=== PATIENT | male | born 1945 | race Caucasian/White ===

== ENCOUNTER → 2017-01-09 | Outpatient (CLI) | payer MEDICARE, BC | LOC: LAB 07:08 | DX: Q02 Microcephaly (principal); G62.89 Other specified polyneuropathies ==

== ENCOUNTER → 2017-01-13 | Outpatient (CLI) | payer MEDICARE, BC | LOC: RAD 15:08 | DX: G95.19 Other vascular myelopathies (principal); M51.36 Other intervertebral disc degeneration, lumbar region; M48.06 Spinal stenosis, lumbar region; M51.26 Other intervertebral disc displacement, lumbar region ==

== ENCOUNTER → 2017-01-23 | Outpatient (CLI) | payer MEDICARE, BC | LOC: RAD 09:56 | DX: M79.604 Pain in right leg (principal) ==

== ENCOUNTER → 2017-01-27 | Outpatient (CLI) | payer MEDICARE, BC | LOC: RAD 12:51 | DX: M79.89 Other specified soft tissue disorders (principal); R60.0 Localized edema; M71.22 Synovial cyst of popliteal space [Baker], left knee ==

== ENCOUNTER → 2017-06-02 | Outpatient (CLI) | payer MEDICARE, BC ==
[~2017-06-02] VITALS: Ht 188 cm; Wt 86.4 kg
[~2017-06-02] MED LIST: ASPIR LOW81 MG PO; COZAAR 50MG50 MG/TAB PO; DAILY VITAMIN1 EAC1 PO; LASIX20 M1 PO
[2017-06-02 17:20] VITALS: BP 148/84
== END ==
LOC: AMSURD 10:49 → LAB 10:49
DX: M79.89 Other specified soft tissue disorders (principal); I97.131 Postprocedural heart failure following other surgery

== ENCOUNTER → 2017-06-09 | Outpatient (CLI) | payer MEDICARE, BC ==
[2017-06-02 17:20] VITALS: BP 148/84
== END ==
LOC: LAB 10:53
DX: I50.9 Heart failure, unspecified (principal)

== ENCOUNTER → 2017-07-02 | Outpatient (CLI) | payer MEDICARE, BC ==
[2017-06-02 17:20] VITALS: BP 148/84
== END ==
LOC: RAD 09:30
DX: R06.00 Dyspnea, unspecified (principal); M17.12 Unilateral primary osteoarthritis, left knee; M25.462 Effusion, left knee

== ENCOUNTER 2017-07-09 10:00 | Outpatient (RCR) | payer MEDICARE, BC ==
[2017-06-02 17:20] VITALS: BP 148/84
== END 2017-07-09 10:30 | disposition still patient (30) ==
LOC: PT 10:00
DX: G62.9 Polyneuropathy, unspecified (principal)
CPT/HCPCS: G8978-GP; G8979-GP

== ENCOUNTER → 2017-09-15 | Outpatient (CLI) | payer MEDICARE, BC ==
[2017-06-02 17:20] VITALS: BP 148/84
== END ==
LOC: LAB 11:06
DX: R19.5 Other fecal abnormalities (principal)

== ENCOUNTER → 2017-09-19 | Outpatient (CLI) | payer MEDICARE, BC ==
[2017-06-02 17:20] VITALS: BP 148/84
== END ==
LOC: LAB 11:13
DX: R19.5 Other fecal abnormalities (principal)

== ENCOUNTER → 2017-09-22 | Outpatient (CLI) | payer MEDICARE, BC ==
[~2017-09-22] VITALS: Ht 188 cm; Wt 84.5 kg
[2017-09-22 13:18] VITALS: BP 148/80
[2017-09-22 13:25] LABS: EOS # 0.1 (0.04-0.40); EOS % 1.3 % (0.0-4.0); HEMATOCRIT 37.9 % (42.0-52.0); HEMOGLOBIN 11.9 g/dL (13.5-18.0); LYMPH# 2.2 (1.50-4.00); MEAN CELL VOLUME 86 fl (78-100); MEAN CORPUSCULAR HEMOGLOBIN 27 pg (27-31); MEAN CORPUSCULAR HGB CONC 31 g/dL (33-37); MEAN PLATELET VOLUME 9.5 fl (7.4-10.4); NEU # 5.4 (1.40-6.50); PLATELET COUNT 500 K/mm3 (130-400); RED CELL DISTRIBUTION WIDTH 14.6 % (11.5-14.5); WHITE BLOOD COUNT 8.7 K/mm3 (4.8-10.8)
[2017-09-22 13:29] LABS: PROTHROMBIN TIME 10.5 SECONDS (9.0-12.0)
[2017-09-22 13:31] LABS: ALBUMIN 3.7 g/dL (3.5-5.0); ALT/SGPT 32 U/L (21-72); AST-SGOT 19 U/L (17-59); CALCIUM 9.1 mg/dL (8.4-10.2); CARBON DIOXIDE 24 mmol/L (22-30); GLUCOSE 91 mg/dL (75-110); POTASSIUM 4.4 mmol/L (3.6-5.0); SODIUM 139 mmol/L (137-145); TOTAL BILIRUBIN 0.4 mg/dL (0.2-1.3); TOTAL PROTEIN 7.1 g/dL (6.3-8.2)
[2017-09-22 18:44] LABS: URINE APPEARANCE CLEAR; URINE BILIRUBIN NEGATIVE (NEGATIVE); URINE BLOOD NEGATIVE (NEGATIVE); URINE COLOR YELLOW; URINE GLUCOSE NEGATIVE (NEGATIVE); URINE KETONE NEGATIVE (NEGATIVE); URINE LEUKOCYTE ESTERASE NEGATIVE (NEGATIVE); URINE NITRATE NEGATIVE (NEGATIVE); URINE PROTEIN(semi-quant) NEGATIVE (NEGATIVE); URINE UROBILINOGEN NORMAL (NORMAL); URINE WBC 0-1 /hpf (0-3)
== END ==
LOC: AMSURD 12:35
PROVIDERS: Internal Medicine
DX: Z01.818 Encounter for other preprocedural examination (principal); M15.9 Polyosteoarthritis, unspecified

== ENCOUNTER → 2017-11-04 | Outpatient (CLI) | payer MEDICARE, BC ==
[2017-09-22 13:18] VITALS: BP 148/80
[2017-11-04 07:32] LABS: PH-URINE 6.5 (5.0 - 8.0); URINE APPEARANCE CLEAR; URINE BILIRUBIN NEGATIVE (NEGATIVE); URINE BLOOD NEGATIVE (NEGATIVE); URINE COLOR YELLOW; URINE GLUCOSE NEGATIVE (NEGATIVE); URINE KETONE NEGATIVE (NEGATIVE); URINE LEUKOCYTE ESTERASE NEGATIVE (NEGATIVE); URINE MUCUS PRESENT (NOT PRESENT); URINE NITRATE NEGATIVE (NEGATIVE); URINE PROTEIN(semi-quant) NEGATIVE (NEGATIVE); URINE UROBILINOGEN NORMAL (NORMAL); URINE WBC 0-1 /hpf (0-3)
== END ==
LOC: LAB 07:12
PROVIDERS: Internal Medicine
DX: Z12.5 Encounter for screening for malignant neoplasm of prostate (principal); Z12.11 Encounter for screening for malignant neoplasm of colon; Z01.818 Encounter for other preprocedural examination; E78.2 Mixed hyperlipidemia; M15.9 Polyosteoarthritis, unspecified

== ENCOUNTER 2017-11-24 13:00 | Outpatient (RCR) | payer MEDICARE, BC ==
[2017-09-22 13:18] VITALS: BP 148/80
== END 2017-11-24 13:30 | disposition home or self-care (01) ==
LOC: PT 13:00
DX: Z47.1 Aftercare following joint replacement surgery (principal); Z96.651 Presence of right artificial knee joint
CPT/HCPCS: G8978-GP; G8979-GP

== ENCOUNTER → 2018-01-14 | Outpatient (CLI) | payer MEDICARE, BC ==
[2017-09-22 13:18] VITALS: BP 148/80
[2018-01-14 14:39] LABS: POTASSIUM 3.9 mmol/L (3.6-5.0)
== END ==
LOC: LAB 14:13
PROVIDERS: Nurse Practitioner Family
DX: R60.9 Edema, unspecified (principal)

== ENCOUNTER → 2018-01-26 | Outpatient (CLI) | payer MEDICARE, BC ==
[~2018-01-26] VITALS: Ht 188 cm; Wt 84.5 kg
[2018-01-26 11:18] LABS: PROTHROMBIN TIME 10.6 SECONDS (9.0-12.0)
[2018-01-26 11:21] LABS: ALBUMIN 3.7 g/dL (3.5-5.0); BUN/CREATININE RATIO 26.8 (6.0-26.0); CALCIUM 8.9 mg/dL (8.4-10.2); POTASSIUM 3.9 mmol/L (3.6-5.0); TOTAL BILIRUBIN 0.2 mg/dL (0.2-1.3); TOTAL PROTEIN 7.9 g/dL (6.3-8.2)
[2018-01-26 11:25] LABS: HEMOGLOBIN 11.3 g/dL (13.5-18.0); MEAN CELL VOLUME 80 fl (78-100); MEAN CORPUSCULAR HEMOGLOBIN 25 pg (27-31); MEAN CORPUSCULAR HGB CONC 31 g/dL (33-37); MEAN PLATELET VOLUME 9.1 fl (7.4-10.4); PLATELET COUNT 473 K/mm3 (130-400); RED BLOOD COUNT 4.52 M/mm3 (4.20-5.60); RED CELL DISTRIBUTION WIDTH 17.3 % (11.5-14.5); WHITE BLOOD COUNT 8.4 K/mm3 (4.8-10.8)
[2018-01-26 11:34] LABS: LYMPHOCYTE 32 % (20-51); MONOCYTE 16 % (3-10); NEUTROPHILS 50 % (42-75)
[2018-01-26 11:46] VITALS: BP 128/70
[2018-01-26 13:03] LABS: URINE APPEARANCE CLEAR; URINE BILIRUBIN NEGATIVE (NEGATIVE); URINE BLOOD NEGATIVE (NEGATIVE); URINE COLOR YELLOW; URINE GLUCOSE NEGATIVE (NEGATIVE); URINE KETONE NEGATIVE (NEGATIVE); URINE LEUKOCYTE ESTERASE NEGATIVE (NEGATIVE); URINE MUCUS PRESENT (NOT PRESENT); URINE NITRATE NEGATIVE (NEGATIVE); URINE PROTEIN(semi-quant) NEGATIVE (NEGATIVE); URINE UROBILINOGEN NORMAL (NORMAL); URINE WBC 0-1 /hpf (0-3)
== END ==
LOC: AMSURD 10:42
PROVIDERS: Internal Medicine
DX: Z01.812 Encounter for preprocedural laboratory examination (principal); M15.9 Polyosteoarthritis, unspecified; Z51.81 Encounter for therapeutic drug level monitoring; R53.83 Other fatigue

== ENCOUNTER 2018-04-01 13:00 | Outpatient (RCR) | payer MEDICARE, BC ==
[2018-01-26 11:46] VITALS: BP 128/70
== END 2018-04-01 13:30 | disposition home or self-care (01) ==
LOC: PT 13:00
DX: Z47.1 Aftercare following joint replacement surgery (principal); Z96.652 Presence of left artificial knee joint; Z96.651 Presence of right artificial knee joint; I10 Essential (primary) hypertension; Z79.899 Other long term (current) drug therapy
CPT/HCPCS: G8978-GP; G8979-GP

== ENCOUNTER → 2018-10-26 | Outpatient (CLI) | payer MEDICARE, BC ==
[2018-01-26 11:46] VITALS: BP 128/70
[2018-10-26 07:50] LABS: EOS # 0.2 (0.04-0.40); EOS % 2.8 % (0.0-4.0); HEMATOCRIT 47.8 % (42.0-52.0); HEMOGLOBIN 15.3 g/dL (13.5-18.0); LYMPH# 2.5 (1.50-4.00); MEAN CELL VOLUME 86 fl (78-100); MEAN CORPUSCULAR HEMOGLOBIN 28 pg (27-31); MEAN CORPUSCULAR HGB CONC 32 g/dL (33-37); MEAN PLATELET VOLUME 9.6 fl (7.4-10.4); MONO # 0.8 (0.20-0.80); NEU # 4.6 (1.40-6.50); PLATELET COUNT 350 K/mm3 (130-400); RED BLOOD COUNT 5.57 M/mm3 (4.20-5.60); WHITE BLOOD COUNT 8.2 K/mm3 (4.8-10.8)
[2018-10-26 08:10] LABS: ALBUMIN 4.4 g/dL (3.5-5.0); CALCIUM 9.6 mg/dL (8.4-10.2); POTASSIUM 3.9 mmol/L (3.6-5.0); TOTAL BILIRUBIN 0.5 mg/dL (0.2-1.3); TOTAL PROTEIN 8.1 g/dL (6.3-8.2)
[2018-10-26 08:43] LABS: URINE APPEARANCE CLEAR; URINE COLOR YELLOW
[2018-10-26 08:44] LABS: URINE BILIRUBIN NEGATIVE (NEGATIVE); URINE BLOOD NEGATIVE (NEGATIVE); URINE GLUCOSE NEGATIVE (NEGATIVE); URINE KETONE NEGATIVE (NEGATIVE); URINE LEUKOCYTE ESTERASE NEGATIVE (NEGATIVE); URINE MUCUS PRESENT (NOT PRESENT); URINE NITRATE NEGATIVE (NEGATIVE); URINE PROTEIN(semi-quant) TRACE mg/dL (NEGATIVE); URINE UROBILINOGEN NORMAL (NORMAL)
== END ==
LOC: LAB 07:06
PROVIDERS: Internal Medicine
DX: Z01.812 Encounter for preprocedural laboratory examination (principal); Z12.5 Encounter for screening for malignant neoplasm of prostate; Z12.11 Encounter for screening for malignant neoplasm of colon; M15.9 Polyosteoarthritis, unspecified; E78.2 Mixed hyperlipidemia

== ENCOUNTER → 2018-11-02 | Outpatient (CLI) | payer MEDICARE, BC ==
[2018-01-26 11:46] VITALS: BP 128/70
== END ==
LOC: RAD 09:48
DX: R09.89 Other specified symptoms and signs involving the circulatory and respiratory systems (principal)

== ENCOUNTER → 2019-11-19 | Outpatient (CLI) | payer MEDICARE, BC ==
[2018-01-26 11:46] VITALS: BP 128/70
[2019-11-19 08:52] LABS: EOS # 0.2 (0.04-0.40); HEMATOCRIT 46.3 % (42.0-52.0); HEMOGLOBIN 14.9 g/dL (13.5-18.0); LYMPH# 2.7 (1.50-4.00); MEAN CELL VOLUME 93 fl (78-100); MEAN CORPUSCULAR HEMOGLOBIN 30 pg (27-31); MEAN CORPUSCULAR HGB CONC 32 g/dL (33-37); MEAN PLATELET VOLUME 10.2 fl (7.4-10.4); NEU # 4.5 (1.40-6.50); PLATELET COUNT 366 K/mm3 (130-400); RED BLOOD COUNT 4.98 M/mm3 (4.20-5.60); RED CELL DISTRIBUTION WIDTH 14.3 % (11.5-14.5); WHITE BLOOD COUNT 8.4 K/mm3 (4.8-10.8)
[2019-11-19 08:53] LABS: ALBUMIN 4.1 g/dL (3.4-4.8); POTASSIUM 4.2 mmol/L (3.5-5.1)
[2019-11-19 08:54] LABS: CALCIUM 9.9 mg/dL (8.3-10.5)
[2019-11-19 08:56] LABS: TOTAL PROTEIN 7.1 g/dL (6.2-8.1)
[2019-11-19 08:57] LABS: TOTAL BILIRUBIN 0.5 mg/dL (0.2-1.2)
[2019-11-19 09:02] LABS: MAGNESIUM 1.83 mg/dL (1.60-2.60)
== END ==
LOC: LAB 11-18 10:05
PROVIDERS: Internal Medicine
DX: Z12.5 Encounter for screening for malignant neoplasm of prostate (principal); Z12.11 Encounter for screening for malignant neoplasm of colon; I10 Essential (primary) hypertension; E78.2 Mixed hyperlipidemia

== ENCOUNTER → 2020-05-18 | Outpatient (CLI) | payer MEDICARE, BC ==
[2018-01-26 11:46] VITALS: BP 128/70
== END ==
LOC: VAS 15:34 → RAD 15:45 → VAS 15:45
DX: I48.19 Other persistent atrial fibrillation (principal)

== ENCOUNTER → 2020-12-27 | Outpatient (CLI) | payer MEDICARE, BC ==
[2018-01-26 11:46] VITALS: BP 128/70
[2020-12-27 08:31] LABS: URINE APPEARANCE CLEAR; URINE BILIRUBIN NEGATIVE (NEGATIVE); URINE BLOOD NEGATIVE (NEGATIVE); URINE COLOR YELLOW; URINE GLUCOSE NEGATIVE (NEGATIVE); URINE KETONE NEGATIVE (NEGATIVE); URINE LEUKOCYTE ESTERASE NEGATIVE (NEGATIVE); URINE NITRATE NEGATIVE (NEGATIVE); URINE PROTEIN(semi-quant) NEGATIVE (NEGATIVE); URINE UROBILINOGEN NORMAL (NORMAL); URINE WBC 0-1 /hpf (0-3)
[2020-12-27 08:59] LABS: POTASSIUM 4.4 mmol/L (3.5-5.1)
[2020-12-27 09:00] LABS: ALBUMIN 4.2 g/dL (3.4-4.8)
[2020-12-27 09:01] LABS: CALCIUM 9.4 mg/dL (8.3-10.5)
[2020-12-27 09:04] LABS: TOTAL BILIRUBIN 0.7 mg/dL (0.2-1.2)
[2020-12-27 09:09] LABS: MAGNESIUM 2.04 mg/dL (1.60-2.60)
[2020-12-27 09:58] LABS: EOS # 0.2 (0.04-0.40); EOS % 3.4 % (0.0-4.0); HEMATOCRIT 49.4 % (42.0-52.0); HEMOGLOBIN 16.1 g/dL (13.5-18.0); LYMPH# 1.8 (1.50-4.00); MEAN CELL VOLUME 95 fl (78-100); MEAN CORPUSCULAR HEMOGLOBIN 31 pg (27-31); MEAN CORPUSCULAR HGB CONC 33 g/dL (33-37); MEAN PLATELET VOLUME 10.5 fl (7.4-10.4); MONO # 0.7 (0.20-0.80); NEU # 2.9 (1.40-6.50); PLATELET COUNT 277 K/mm3 (130-400); RED BLOOD COUNT 5.21 M/mm3 (4.20-5.60); RED CELL DISTRIBUTION WIDTH 13.6 % (11.5-14.5); WHITE BLOOD COUNT 5.6 K/mm3 (4.8-10.8)
[2020-12-27 11:22] LABS: ERYTHROCYTE SEDIMENTATION RATE 5 mm/hr (0-20)
== END ==
LOC: LAB 07:46
PROVIDERS: Internal Medicine
DX: Z12.5 Encounter for screening for malignant neoplasm of prostate (principal); I10 Essential (primary) hypertension; E78.2 Mixed hyperlipidemia; K90.9 Intestinal malabsorption, unspecified

== ENCOUNTER → 2021-01-01 | Outpatient (CLI) | payer MEDICARE, BC ==
[2018-01-26 11:46] VITALS: BP 128/70
== END ==
LOC: LAB 08:09
DX: Z12.11 Encounter for screening for malignant neoplasm of colon (principal)

== ENCOUNTER → 2021-11-22 | Outpatient (CLI) | payer MEDICARE, BC ==
[2021-11-22 08:02] LABS: BASO # 0.03 K/mm3 (0.02-0.10); HEMATOCRIT 47.8 % (42.0-52.0); HEMOGLOBIN 16.2 g/dL (13.5-18.0); LYMPH# 2.15 K/mm3 (1.50-4.00); MEAN CELL VOLUME 95 fl (78-100); MEAN CORPUSCULAR HEMOGLOBIN 32 pg (27-31); MEAN CORPUSCULAR HGB CONC 34 g/dL (33-37); MONO # 0.63 K/mm3 (0.20-0.80); NEU # 3.63 K/mm3 (1.40-6.50); PLATELET COUNT 247 K/mm3 (130-400); RED BLOOD COUNT 5.05 M/mm3 (4.20-5.60); RED CELL DISTRIBUTION WIDTH 12.9 % (11.5-14.5); WHITE BLOOD COUNT 6.5 K/mm3 (4.8-10.8)
[2021-11-22 08:22] LABS: POTASSIUM 4.2 mmol/L (3.5-5.1)
[2021-11-22 08:23] LABS: ALBUMIN 4.2 g/dL (3.4-4.8)
[2021-11-22 08:24] LABS: CALCIUM 9.2 mg/dL (8.3-10.5)
[2021-11-22 08:25] LABS: TOTAL PROTEIN 7.1 g/dL (6.2-8.1)
[2021-11-22 08:27] LABS: TOTAL BILIRUBIN 0.9 mg/dL (0.2-1.2)
[2021-11-22 08:32] LABS: MAGNESIUM 2.03 mg/dL (1.60-2.60)
[2021-11-22 10:18] LABS: ERYTHROCYTE SEDIMENTATION RATE 2 mm/hr (0-20)
== END ==
LOC: LAB 07:09
PROVIDERS: Internal Medicine
DX: Z12.11 Encounter for screening for malignant neoplasm of colon (principal); Z12.5 Encounter for screening for malignant neoplasm of prostate; I10 Essential (primary) hypertension; M15.9 Polyosteoarthritis, unspecified; E78.2 Mixed hyperlipidemia; K90.9 Intestinal malabsorption, unspecified; R09.89 Other specified symptoms and signs involving the circulatory and respiratory systems

== ENCOUNTER 2022-10-08 18:25 | Emergency (ER) | payer MEDICARE, BC ==
[~2022-10-08] VITALS: Ht 188 cm; Wt 86.4 kg
[2022-10-08] MEDS ORDERED: IRON90 MG PO (18:47)
[2022-10-08] MEDS ORDERED: B12 ACTIVE1000 MCG PO (18:47)
[2022-10-08 19:55] LABS: BASO # 0.02 K/mm3 (0.02-0.10); EOS # 0.03 K/mm3 (0.04-0.40); EOS % 0.4 % (0.0-4.0); HEMATOCRIT 48.5 % (42.0-52.0); HEMOGLOBIN 16.5 g/dL (13.5-18.0); LYMPH# 2.54 K/mm3 (1.50-4.00); MEAN CELL VOLUME 95 fl (78-100); MEAN CORPUSCULAR HEMOGLOBIN 32 pg (27-31); MEAN CORPUSCULAR HGB CONC 34 g/dL (33-37); MONO # 0.74 K/mm3 (0.20-0.80); NEU # 3.73 K/mm3 (1.40-6.50); PLATELET COUNT 238 K/mm3 (130-400); RED BLOOD COUNT 5.12 M/mm3 (4.20-5.60); RED CELL DISTRIBUTION WIDTH 12.5 % (11.5-14.5); WHITE BLOOD COUNT 7.1 K/mm3 (4.8-10.8)
[2022-10-08 20:03] LABS: ALBUMIN 4.4 g/dL (3.4-4.8)
[2022-10-08 20:04] LABS: SODIUM 138 mmol/L (136-145)
[2022-10-08 20:05] LABS: CALCIUM 9.6 mg/dL (8.3-10.5)
[2022-10-08 20:06] LABS: GLUCOSE 106 mg/dL (75-110); TOTAL PROTEIN 7.3 g/dL (6.2-8.1)
[2022-10-08 20:07] LABS: CARBON DIOXIDE 24 mmol/L (23-31)
[2022-10-08 20:08] LABS: TOTAL BILIRUBIN 0.4 mg/dL (0.2-1.2)
[2022-10-08 20:20] LABS: ALT/SGPT 16 U/L (0-55)
[2022-10-08 20:21] LABS: AST-SGOT 18 U/L (5-34)
[2022-10-08 20:45] LABS: TROPONIN-I < 0.030 ng/mL (<0.030)
[2022-10-08 22:29] LABS: D-DIMER 0.18 mg/L FEU (0.15-0.50)
[2022-10-08] MEDS ORDERED: LOPRESSOR 225 MG/TAB PO (22:44)
[2022-10-08] MEDS ORDERED: ELIQUIS5 MG PO (22:44)
[2022-10-08 22:48] VITALS: BP 168/102
== END 2022-10-08 22:48 | disposition home or self-care (01) ==
LOC: ED 18:25
PROVIDERS: Nurse Practitioner
DX: I48.91 Unspecified atrial fibrillation (principal); I10 Essential (primary) hypertension; F41.9 Anxiety disorder, unspecified

== ENCOUNTER → 2022-10-14 | Outpatient (CLI) | payer MEDICARE, BC ==
[~2022-10-14] MED LIST changes: +B12 ACTIVE1000 MCG PO; +ELIQUIS5 MG PO; +IRON90 MG PO; +LOPRESSOR 225 MG/TAB PO
[2022-10-14 08:58] LABS: PROTHROMBIN TIME 20.2 SECONDS (9.0-12.0)
== END ==
LOC: LAB 07:06
PROVIDERS: Internal Medicine
DX: I48.0 Paroxysmal atrial fibrillation (principal)

== ENCOUNTER → 2022-10-21 | Outpatient (CLI) | payer MEDICARE, BC ==
[2022-10-21 11:52] LABS: PROTHROMBIN TIME 46.3 SECONDS (9.0-12.0)
== END ==
LOC: LAB 09:37
PROVIDERS: Internal Medicine
DX: I48.0 Paroxysmal atrial fibrillation (principal)

== ENCOUNTER → 2022-10-23 | Outpatient (CLI) | payer MEDICARE, BC ==
[2022-10-23 10:23] LABS: PROTHROMBIN TIME 23.6 SECONDS (9.0-12.0)
== END ==
LOC: LAB 08:55
PROVIDERS: Family Medicine
DX: I48.91 Unspecified atrial fibrillation (principal)